=== PATIENT | female | born 1980 | race Caucasian/White ===

== ENCOUNTER 2020-07-22 09:15 | Inpatient (IN) | payer OTHER ==
[~2020-07-22] VITALS: Ht 157.5 cm; Wt 84.8 kg
== END 2020-07-31 11:01 | disposition home or self-care (01) | DRG 743 ==
LOC: OB/GYN 07-28 09:15 → O/R 07-28 12:24 → OB/GYN 07-29 00:03
PROVIDERS: ADMIT Obstetrics & Gynecology; ATTEND Obstetrics & Gynecology
PROC: 0UB70ZZ Excision of Bilateral Fallopian Tubes, Open Approach (ICD-10-PCS; 2020-07-28)
PROC: 0UT90ZZ Resection of Uterus, Open Approach (ICD-10-PCS; principal; 2020-07-28 10:30)
DX: D25.1 Intramural leiomyoma of uterus (principal); N80.0 Endometriosis of uterus; N72 Inflammatory disease of cervix uteri; N83.8 Other noninflammatory disorders of ovary, fallopian tube and broad ligament